=== PATIENT | female | born 1965 | race Caucasian/White ===

== ENCOUNTER 2017-04-18 16:20 | Emergency (ER) | payer OTHER ==
[2017-04-18 16:41] VITALS: TEMP 98.3; BMI 30.7
[2017-04-18] MEDS ORDERED: KETOROLAC TROMETHAMINE 30 MG/1 ML VIAL IVPUSH ONE (18:31)
[2017-04-18] MEDS ORDERED: SODIUM CHLORIDE 1,000 ML IV STA (18:32)
--- NOTE | 2017-04-18 18:32 | PDOC ---
History of Present Illness - General History Source: Patient Exam Limitations: No Limitations - History of Present Illness Initial Comments: 04/18/17 18:32 The patient is a 51-year-old female, with a significant past medical history of gastritis, who presents to the ED with abdominal pain. The patient has been having this recurrent abdominal pain for the last 3 years. Today at 2:30 pm, the patient was eating at [employer] and when she walked out of the restaurant she began to experience abdominal pain, dizziness, and blurred vision. She states that the pain is intermittent, lasting 30 minutes before resolving, with radiation to the back. The pt has experienced similar pain in the past but it has never been this severe. She arrived home and reports that she vomited 1x. Soon after the patient became unresponsive while talking to her . He reports that he was calling her name and she was not responding. The pt appeared to be shaking and moving her lips. This lasted about 2 minutes before the patient regained consciousness. On exam, pt patient states that her last bowel movement was yesterday and was normal. She does report that she uses a stool softener. She did have an MRI done last week that revealed stones. It is unclear whether they were kidney or gallstones. She denies any fever, chills, or diarrhea. She denies any chest pain or shortness of breath. She denies having any urinary symptoms. Surgical Hx: gallbladder removal (3 years ago at [facility]). Social Hx: She denies any tobacco use, alcohol use, or tobacco use. <Selina Frank - Last Filed: 04/18/17 20:14> <Rk Garsia - Last Filed: 04/18/17 20:39> - General Chief Complaint: Pain Stated Complaint: ABD PAIN Time Seen by Provider: 04/18/17 16:32 Past History <Selina Frank - Last Filed: 04/18/17 20:14> - Psycho/Social/Smoking Cessation Hx Anxiety: No Suicidal Ideation: No Smoking History: Never smoked Substance Use Type: None <Rk Garsia - Last Filed: 04/18/17 20:39> - Past Medical History Allergies/Adverse Reactions: Allergies Allergy/AdvReac Type Severity Reaction Status Date / Time No Known Allergies Allergy Verified 04/18/17 16:28 Home Medications: Ambulatory Orders NK [No Known Home Medication] 04/18/17 Review of Systems - Review of Systems Able to Perform ROS?: Yes Comments:: 04/18/17 18:33 GENERAL/CONSTITUTIONAL: No fever or chills. No weakness. HEAD, EYES, EARS, NOSE AND THROAT: No change in vision. No ear pain or discharge. No sore throat. CARDIOVASCULAR: No chest pain or shortness of breath. RESPIRATORY: No cough, wheezing, or hemoptysis. SKIN: No rash GASTROINTESTINAL: (+)abdominal pain, nausea, vomiting. No diarrhea or constipation. GENITOURINARY: No dysuria, frequency, or change in urination. MUSCULOSKELETAL: (+)Back pain. No joint swelling or pain. No neck pain. NEUROLOGIC: (+)Loss of consciousness. No headache, vertigo, or change in strength/sensation. ENDOCRINE: No increased thirst. No abnormal weight change. HEMATOLOGIC/LYMPHATIC: No anemia, easy bleeding, or history of blood clots. ALLERGIC/IMMUNOLOGIC: No hives or skin allergy. <Selina Frank - Last Filed: 04/18/17 20:14> *Physical Exam - Vital Signs Last Vital Signs Temp Pulse Resp BP Pulse Ox 98.3 F 72 18 189/89 98 04/18/17 16:23 04/18/17 16:23 04/18/17 16:23 04/18/17 16:23 04/18/17 16:23 - Physical Exam Comments: 04/18/17 18:34 GENERAL: Awake, alert, and fully oriented, in no acute distress HEAD: No signs of trauma ENT: Auricles normal inspection, hearing grossly normal, nares patent, oropharynx clear EYES: PERRLA, EOMI, sclera anicteric, conjunctiva clear without exudates. Moist mucosa. NECK: Normal ROM, supple, no lymphadenopathy, JVD, or masses LUNGS: Breath sounds equal, clear to auscultation bilaterally. No wheezes, and no crackles HEART: Regular rate and rhythm, normal S1 and S2, no murmurs, rubs or gallops ABDOMEN: (+)Mild mid-epigastric tenderness. Negative [place] sign. Soft, normoactive bowel sounds. No guarding, no rebound. No masses EXTREMITIES: Normal range of motion, no edema. No clubbing or cyanosis. No cords, erythema, or tenderness NEUROLOGICAL: Cranial nerves II through XII grossly intact. SKIN: Warm, Dry, normal turgor, no rashes or lesions noted <Susan Frankie - Last Filed: 04/18/17 20:14> - Vital Signs Last Vital Signs Temp Pulse Resp BP Pulse Ox 98.3 F 72 18 189/89 98 04/18/17 16:23 04/18/17 16:23 04/18/17 16:23 04/18/17 16:23 04/18/17 16:23 <Rk Garsia - Last Filed: 04/18/17 20:39> ED Treatment Course - LABORATORY CBC & Chemistry Diagram: 04/18/17 18:28 04/18/17 18:28 - RADIOLOGY Radiology Studies Ordered: 04/18/17 20:14 Abdomen US was reviewed by Dr. Garsia and over-read by Radiology. Impression: Cholecystectomy. Unremarkable liver, right kidney and visualized aorta and pancreas. No biliary dilatation. Common duct diameter 3 mm. <Selina Frank - Last Filed: 04/18/17 20:14> - LABORATORY CBC & Chemistry Diagram: 04/18/17 18:28 04/18/17 18:28 <Rk Garsia - Last Filed: 04/18/17 20:39> *DC/Admit/Observation/Transfer - Attestations Scribe Attestion: 04/18/17 18:35 Documentation prepared by Selina Frank, acting as medical housekeeper for Rk Garsia MD. <Selina Frank - Last Filed: 04/18/17 20:14> - Discharge Dispostion Admit: No - Attestations Physician Attestion: 04/18/17 18:32 I, Dr. Rk Garsia, attest that this document has been prepared under my direction and personally reviewed by me in its entirety. I further attest, that it accurately reflects all work, treatment, procedures and medical decision -making performed by me. <Rk Garsia - Last Filed: 04/18/17 20:39> Diagnosis at time of Disposition: Elevated liver enzymes Abdominal pain Qualifiers: Abdominal location: generalized Qualified Code(s): R10.84 - Generalized abdominal pain - Discharge Dispostion Disposition: HOME Condition at time of disposition: Improved - Patient Instructions Printed Discharge Instructions: DI for Abdominal Pain-Adult Additional Instructions: The blood tests that reflect your liver function are abnormal..... take the printouts with you when you see your doctor at [facility]...... call tomorrow to get their next available appointment. Return to us if any problems.
[2017-04-18 18:39] LABS: BASOPHIL 1.1 % (0-2.0); EOSINOPHIL 0.7 % (0-4.5); MCH 28.4 pg (25.7-33.7); MEAN CELL VOLUME 83.4 fl (80-96); MEAN PLT VOLUME 7.9 fl (7.5-11.1); PLATELET COUNT 274 K/MM3 (134-434); RDW 13.8 % (11.6-15.6); WHITE BLOOD COUNT 8.7 K/mm3 (4.0-10.0)
[2017-04-18 18:39] LABS: URINE APPEARANCE CLEAR; URINE BILIRUBIN NEGATIVE (NEGATIVE); URINE BLOOD 1+ (NEGATIVE); URINE COLOR LT. YELLOW; URINE GLUCOSE (UA) NEGATIVE (NEGATIVE); URINE KETONE NEGATIVE (NEGATIVE); URINE NITRITE NEGATIVE (NEGATIVE); URINE PROTEIN NEGATIVE (NEGATIVE); URINE UROBILINOGEN 0.2 mg/dL (0.2-1.0)
[2017-04-18 18:42] LABS: URINE LEUK ESTERASE TRACE (NEGATIVE)
[2017-04-18 18:48] LABS: URINE BACTERIA RARE /hpf (NONE SEEN); URINE RBC 2 /hpf (0-3); URINE WBC 5 /hpf (3-5); YEAST MANY
[2017-04-18] MEDS ORDERED: KETOROLAC TROMETHAMINE 30 MG/1 ML VIAL ONE (18:49)
[2017-04-18 19:04] LABS: ALBUMIN 3.8 g/dl (3.4-5.0); ANION GAP 8 (8-16); CO2 28 mmol/L (21-32); GLUCOSE,RANDOM 117 mg/dL (74-106); SGOT/AST 255 U/L (15-37); SGPT/ALT 156 U/L (12-78)
[2017-04-18 19:05] LABS: ALK PHOS 182 U/L (45-117); BILIRUBIN,TOTAL 0.7 mg/dL (0.2-1.0); TOT PROT 7.2 g/dl (6.4-8.2)
[2017-04-18] MEDS ORDERED: cloNIDine HCL 0.1 MG TABLET PO ONE (20:59)
[2017-04-18] MEDS ORDERED: cloNIDine HCL 0.1 MG TABLET ONE (21:01)
[2017-04-18 22:10] VITALS: BP 146/95; PULSE 60
== END 2017-04-18 22:11 | disposition home or self-care (01) ==
LOC: EDBD 16:20 → JER 16:20
PROC: 3E0333Z Introduction of Anti-inflammatory into Peripheral Vein, Percutaneous Approach (ICD-10-PCS; principal; 2017-04-18)
PROC: 3E0337Z Introduction of Electrolytic and Water Balance Substance into Peripheral Vein, Percutaneous Approach (ICD-10-PCS; 2017-04-18)
DX: R94.5 Abnormal results of liver function studies (principal); R10.84 Generalized abdominal pain
CPT/HCPCS: 36415; 76705-TC; 80053; 81003; 81015; 83690; 84703; 85025; 99283-25